=== PATIENT | male | born 1975 | race African-American/Black ===

== ENCOUNTER 2024-01-07 11:30 | Emergency (ER) | payer MEDICAID ==
[~2024-01-07] VITALS: Ht 190.5 cm; Wt 118.0 kg
[2024-01-07 11:34] VITALS: O2SAT 95
[2024-01-07] MEDS ORDERED: ACETAMINOPHEN 325MG TABLET PO ONE (13:15)
[2024-01-07] MEDS ORDERED: KETOROLAC 30MG/ML VIAL IM ONE (13:15)
[2024-01-07] MEDS: LORAZEPAM 2MG/ML INJ IV ONE (13:15)
[2024-01-07] MEDS ORDERED: LIDOCAINE 5% PATCH TOP ONE (13:15)
[2024-01-07 15:07] VITALS: TEMP 98.1
[2024-01-07] MEDS: ACETAMINOPHEN 325MG TABLET PO NR (15:07)
[2024-01-07 15:08] VITALS: BP 126/90; PULSE 89
[2024-01-07] MEDS: KETOROLAC 30MG/ML VIAL IM NR (15:08)
[2024-01-07] MEDS: LIDOCAINE 5% PATCH TOP NR (15:08)
[2024-01-07] MEDS: LORAZEPAM 1MG TABLET PO ONE (15:08)
[2024-01-07 17:20] VITALS: RESP 18
== END 2024-01-07 18:33 | disposition left against medical advice (07) ==
LOC: ER 11:30
DX: M54.2 Cervicalgia (principal); Z98.890 Other specified postprocedural states
CPT/HCPCS: 72125; 96372; 99285; J1885; Z7610